=== PATIENT | male | born 1985 | race Caucasian/White ===

== ENCOUNTER 2021-12-14 15:13 | Inpatient (IN) | payer OTHER ==
[2021-12-14 19:16] LABS: Prothrombin Time 12.9 sec (12.0-14.7)
[2021-12-14 19:27] LABS: Iron 112 ug/dL (65-175); Iron Binding Capacity, Total 354 mcg/dL (261-462)
[2021-12-14 19:48] LABS: HBCM Index 0.09 S/CO (0-0.79); HBSAg Index 0.22 S/CO (0-0.99); Hep A IgM AB Non-Reactive (NonReactive); Hep A IgM S/CO 0.19 S/CO (0-0.79); Hep B Surf Ag Non-Reactive S/CO (NonReactive); Hep C IgG Ab Non-Reactive (NonReactive); Hep C Index 0.07 S/CO (0-0.79); Hepatitis B Core IgM Abs Non-Reactive (NonReactive)
[2021-12-14] MEDS ORDERED: Acetaminophen 325 MG TAB PO PRN (22:13)
[2021-12-14] MEDS ORDERED: Ondansetron PF 4 MG/2 ML Vial IVP PRN (22:13)
[2021-12-14] MEDS ORDERED: Enoxaparin Sodium 40 MG/0.4 ML SYRINGE SC SCH (22:30)
[2021-12-14 23:25] VITALS: BMI 44.6
[2021-12-15 04:09] LABS: SARS-CoV-2 NAA Rapid Test Not Detected (NotDetected)
[2021-12-15 05:47] LABS: #Eosinphils 0.2 thou/uL (0.0-0.7); #Lymphocytes 1.5 thou/uL (1.20-3.40); #Monocytes 0.4 thou/uL (0.11-0.59); #Neutrophils 2.1 thou/uL (1.40-6.50); %Basophils 0.4 % (0.0-1.0); %Eosinophils 4.9 % (0.0-10.0); %Lymphocytes 36.1 % (21.0-51.0); %Monocytes 8.3 % (0.0-10.0); %Neutrophils 50.3 % (42.0-75.0); Hemoglobin 15.1 g/dL (14.0-18.0); Mean Corpuscular HGB CONC 33.6 g/dL (32.0-36.0); Mean Corpuscular Hemoglobin 29.4 pg (27.0-31.0); Mean Corpuscular Volume 87.3 fL (78.0-98.0); Mean Platelet Volume 7.7 fL (7.4-10.4); Platelet Count 146 thou/uL (130-400); RBC Distribution Width 12.1 % (11.5-14.5); Red Blood Cell (RBC) Count 5.15 mill/uL (4.70-6.10); White Blood Cell (WBC) Count 4.2 thou/uL (4.8-10.8)
[2021-12-15 06:09] LABS: ALT (SGPT) 483 U/L (8-55); AST (SGOT) 108 U/L (5-34); Alkaline Phosphatase 168 U/L (40-110); Anion Gap 12 mmol/L (10-20); BUN (Urea Nitrogen) 8 mg/dL (8.9-20.6); Bilirubin, Total 1.6 mg/dL (0.2-1.2); Calc. Creatinine Clearance 275 mL/min (70-130); Calcium 8.5 mg/dL (7.8-10.44); Carbon Dioxide 25 mmol/L (22-29); Chloride 106 mmol/L (98-107); Globulin 2.5 g/dL (2.4-3.5); Glucose 99 mg/dL (70-105); Potassium 3.9 mmol/L (3.5-5.1); Protein, Total 6.5 g/dL (6.0-8.3); Sodium 139 mmol/L (136-145)
[2021-12-15] MEDS: Famotidine 20 MG TAB PO SCH ×2 (07:57→21:00)
[2021-12-15] MEDS ORDERED: Acetaminophen 500 MG TAB PO SCH (10:45)
[2021-12-15] MEDS ORDERED: Ketorolac Tromethamine 30 MG/ML VIAL IVP SCH (10:45)
[2021-12-15] MEDS ORDERED: Acetaminophen 500 MG TAB ONE (10:46)
[2021-12-15] MEDS ORDERED: Ketorolac Tromethamine 30 MG/ML VIAL ONE (10:46)
[2021-12-15] MEDS ORDERED: Levofloxacin 500 mg/D5W 100 ml Premix Bag ONE (10:46)
[2021-12-15] MEDS ORDERED: Iopamidol 30 ML ONE (10:58)
[2021-12-15] MEDS ORDERED: Indomethacin 50 MG SUPP ONE (11:00)
[2021-12-15] MEDS ORDERED: fentaNYL Citrate/PF 100 MCG/2 ML SYRINGE ONE (11:08)
[2021-12-15] MEDS ORDERED: HYDROmorphone 0.5 MG/0.5 ML SYRINGE ONE (11:08)
[2021-12-15] MEDS ORDERED: Midazolam HCl 2 mg/2 ml Vial ONE (11:08)
[2021-12-15] MEDS ORDERED: Ondansetron PF 4 MG/2 ML Vial ONE (11:24)
[2021-12-15] MEDS ORDERED: Lidocaine 1% PF 5 ML VIAL ONE (11:24)
[2021-12-15] MEDS ORDERED: PROPOFOL 200 MG/20 ML VIAL ONE (11:24)
[2021-12-15] MEDS ORDERED: Dexamethasone 20 MG/5 ML VIAL ONE (11:24)
[2021-12-15] MEDS ORDERED: Succinylcholine 200 MG/10 ml SYRINGE FS ONE (11:24)
[2021-12-15] MEDS ORDERED: Fentanyl 100 MCG/2 ML VIAL ONE ×2 (12:13→12:31)
[2021-12-15] MEDS ORDERED: Promethazine HCl 25 MG/ML VIAL IM PRN (12:15)
[2021-12-15] MEDS ORDERED: HYDROmorphone 2 MG/ML VIAL SLOW IVP PRN (12:15)
[2021-12-15] MEDS ORDERED: Ondansetron HCl/PF 4 MG/2 ML Vial IVP PRN (12:15)
[2021-12-15] MEDS ORDERED: Promethazine HCl 25 MG/ML VIAL IVPB PRN (12:15)
[2021-12-15] MEDS: Ketorolac Tromethamine 30 MG/ML VIAL IVP SCH ×3 (12:45→23:33)
[2021-12-15] MEDS: Sodium Chloride 0.9% 1,000 ML IV SCH ×3 (15:47→21:01)
[2021-12-16] MEDS: Sodium Chloride 0.9% 1,000 ML IV SCH (05:34)
[2021-12-16] MEDS: Ketorolac Tromethamine 30 MG/ML VIAL IVP SCH ×2 (05:35→18:20)
[2021-12-16 07:13] LABS: #Eosinphils 0.1 thou/uL (0.0-0.7); #Lymphocytes 1.3 thou/uL (1.20-3.40); #Monocytes 0.3 thou/uL (0.11-0.59); #Neutrophils 2.6 thou/uL (1.40-6.50); %Basophils 0.1 % (0.0-1.0); %Eosinophils 2.7 % (0.0-10.0); %Lymphocytes 29.9 % (21.0-51.0); %Neutrophils 61.2 % (42.0-75.0); Hemoglobin 15.4 g/dL (14.0-18.0); Mean Corpuscular HGB CONC 33.5 g/dL (32.0-36.0); Mean Corpuscular Hemoglobin 29.4 pg (27.0-31.0); Mean Platelet Volume 7.2 fL (7.4-10.4); Platelet Count 147 thou/uL (130-400); RBC Distribution Width 11.9 % (11.5-14.5); Red Blood Cell (RBC) Count 5.22 mill/uL (4.70-6.10); White Blood Cell (WBC) Count 4.2 thou/uL (4.8-10.8)
[2021-12-16] MEDS: Famotidine 20 MG TAB PO SCH (08:35)
[2021-12-16 08:40] LABS: Albumin 4.1 g/dL (3.5-5.0)
[2021-12-16 08:41] LABS: Chloride 106 mmol/L (98-107); Potassium 3.8 mmol/L (3.5-5.1); Sodium 141 mmol/L (136-145)
[2021-12-16 08:42] LABS: Calcium 8.8 mg/dL (7.8-10.44)
[2021-12-16 08:43] LABS: Globulin 2.5 g/dL (2.4-3.5); Glucose 109 mg/dL (70-105); Protein, Total 6.6 g/dL (6.0-8.3)
[2021-12-16 08:44] LABS: Anion Gap 9 mmol/L (10-20); Bilirubin, Total 1.1 mg/dL (0.2-1.2); Carbon Dioxide 30 mmol/L (22-29)
[2021-12-16 08:45] LABS: Alkaline Phosphatase 148 U/L (40-110)
[2021-12-16 08:46] LABS: Calc. Creatinine Clearance 263 mL/min (70-130)
[2021-12-16 08:47] LABS: BUN (Urea Nitrogen) 8 mg/dL (8.9-20.6)
[2021-12-16 08:48] LABS: AST (SGOT) 50 U/L (5-34)
[2021-12-16 08:49] LABS: ALT (SGPT) 330 U/L (8-55)
[2021-12-16] MEDS ORDERED: Enoxaparin Sodium 40 MG/0.4 ML SYRINGE SC SCH (09:00)
[2021-12-16 12:40] LABS: EliA Celiac New Method **** NEW METHOD ****; t-Transglutaminase (tTG) IgA 0.3 EliAU/mL (<7 Negative)
[2021-12-16] MEDS ORDERED: Lidocaine 1% w/Epinephrine 1:100K 20 ML VIAL ONE (15:08)
[2021-12-16] MEDS ORDERED: Bupivacaine PF 0.5% 30 ML VIAL ONE (15:08)
[2021-12-16] MEDS ORDERED: Midazolam HCl 2 mg/2 ml Vial ONE (15:10)
[2021-12-16] MEDS ORDERED: Ibuprofen 600 MG TAB PO PRN (15:11)
[2021-12-16] MEDS ORDERED: traMADol HCl 50 MG TAB PO PRN (15:11)
[2021-12-16] MEDS ORDERED: Acetaminophen 500 MG TAB PO PRN (15:11)
[2021-12-16] MEDS ORDERED: fentaNYL Citrate/PF 100 MCG/2 ML SYRINGE ONE (15:11)
[2021-12-16] MEDS ORDERED: Ondansetron PF 4 MG/2 ML Vial ONE (15:25)
[2021-12-16] MEDS ORDERED: Ketorolac Tromethamine 30 MG/ML VIAL ONE (15:25)
[2021-12-16] MEDS ORDERED: Dexamethasone 20 MG/5 ML VIAL ONE (15:25)
[2021-12-16] MEDS ORDERED: PROPOFOL 200 MG/20 ML VIAL ONE (15:25)
[2021-12-16] MEDS ORDERED: Rocuronium Bromide 10 MG/ML (10ML VIAL) ONE (15:25)
[2021-12-16] MEDS ORDERED: Lidocaine 1% PF 5 ML VIAL ONE (15:25)
[2021-12-16] MEDS ORDERED: Glycopyrrolate 0.2 MG/ML 5 ML SYRINGE ONE (15:25)
[2021-12-16] MEDS ORDERED: Labetalol HCl 100 MG/20 ML VIAL ONE (15:25)
[2021-12-16] MEDS ORDERED: HYDROmorphone 0.5 MG/0.5 ML SYRINGE ONE (15:26)
[2021-12-16] MEDS ORDERED: Lidocaine 2% Jelly 5 ML TUBE ONE (15:26)
[2021-12-16] MEDS ORDERED: Ondansetron HCl/PF 4 MG/2 ML Vial IVP PRN (15:59)
[2021-12-16] MEDS ORDERED: Promethazine HCl 25 MG/ML VIAL IM PRN (15:59)
[2021-12-16] MEDS ORDERED: Promethazine HCl 25 MG/ML VIAL IVPB PRN (15:59)
[2021-12-16] MEDS ORDERED: HYDROmorphone 2 MG/ML VIAL SLOW IVP PRN (15:59)
[2021-12-16] MEDS ORDERED: HYDROmorphone 2 MG/ML VIAL ONE (16:11)
[2021-12-16] MEDS ORDERED: Fentanyl 100 MCG/2 ML VIAL ONE (16:28)
[2021-12-16] MEDS ORDERED: hydrALAZINE 20 MG/ML VIAL ONE ×2 (16:29→16:30)
[2021-12-16] MEDS ORDERED: hydrALAZINE 20 MG/ML VIAL SLOW IVP PRN (16:50)
[2021-12-16 21:41] VITALS: BP 152/99; TEMP 98
== END 2021-12-16 21:15 | disposition home or self-care (01) | DRG 418 ==
LOC: T4-B 18:28
PROVIDERS: ADMIT Emergency Medicine; ATTEND Emergency Medicine
PROC: 0F798ZZ Dilation of Common Bile Duct, Via Natural or Artificial Opening Endoscopic (ICD-10-PCS; 2021-12-15)
PROC: BF131ZZ Fluoroscopy of Gallbladder and Bile Ducts using Low Osmolar Contrast (ICD-10-PCS; 2021-12-15)
PROC: 0FT44ZZ Resection of Gallbladder, Percutaneous Endoscopic Approach (ICD-10-PCS; principal; 2021-12-16)
DX: K80.13 Calculus of gallbladder with acute and chronic cholecystitis with obstruction (principal); Z68.41 Body mass index [BMI] 40.0-44.9, adult; E66.9 Obesity, unspecified; Z20.822 Contact with and (suspected) exposure to COVID-19; M10.9 Gout, unspecified; I10 Essential (primary) hypertension; Z80.0 Family history of malignant neoplasm of digestive organs; Z87.440 Personal history of urinary (tract) infections; Z79.899 Other long term (current) drug therapy; Z88.8 Allergy status to other drugs, medicaments and biological substances; Z90.49 Acquired absence of other specified parts of digestive tract; Z98.890 Other specified postprocedural states
CPT/HCPCS: 36415; 74330; 80053; 80074; 83516; 83540; 83550; 85025; 85610; C1713; J0360; J1100; J1170; J1650; J1885; J1956; J2250; J2405; J2704; J3010; J7050; Q9967; S0020; U0002